=== PATIENT | female | born 1945 | race Caucasian/White ===

== ENCOUNTER 2017-02-21 18:00 | Emergency (ER) | payer OTHER ==
[~2017-02-21] VITALS: Ht 172.7 cm; Wt 100.7 kg
[~2017-02-21 18:00] MED LIST: AMLODIPINE BESYL5 M1 PO; LOSARTAN POTASS1 TA6 PO; METFORMIN ER500 M1 PO; METOPROLOL SUCC50 M2 PO; OMEPRAZOLE DR20 M1 PO
[2017-02-21 21:26] LABS: BASOPHIL % 0.4 % (0-2); PLATELET COUNT 266 x10^3mcL (130-400); RED CELL DISTRIBUTION WIDTH 13.7 % (11.5-14.5)
[2017-02-21 23:44] LABS: CALCIUM 8.5 mg/dL (8.5-10.1); CARBON DIOXIDE 24.5 mmol/L (21-32); POTASSIUM SERUM 3.9 mmol/L (3.5-5.1)
[2017-02-21 23:49] LABS: ALBUMIN 3.4 g/dL (3.4-5.0); BILIRUBIN TOTAL 0.5 mg/dL (0.20-1.00); TOTAL PROTEIN, SERUM 6.7 g/dL (6.4-8.2)
[2017-02-22] LABS: CK-MB 0.7 ng/mL (0-3.6)
[2017-02-22 00:34] VITALS: BP 135/85
== END 2017-02-22 00:34 | disposition home or self-care (01) ==
LOC: ED 18:00
PROVIDERS: Emergency Medicine
DX: M10.9 Gout, unspecified (principal); I10 Essential (primary) hypertension; E11.9 Type 2 diabetes mellitus without complications
CPT/HCPCS: 83880

== ENCOUNTER 2019-12-17 14:25 | Emergency (ER) | payer OTHER ==
[~2019-12-17] VITALS: Ht 167.6 cm; Wt 100.7 kg
[2019-12-17 15:09] VITALS: Ht 167.6 cm; Wt 100.7 kg
[2019-12-17 16:34] VITALS: BP 132/52
== END 2019-12-17 16:34 | disposition home or self-care (01) ==
LOC: ED 14:25
DX: S83.91XA Sprain of unspecified site of right knee, initial encounter (principal); S09.8XXA Other specified injuries of head, initial encounter; W19.XXXA Unspecified fall, initial encounter; I10 Essential (primary) hypertension; E11.9 Type 2 diabetes mellitus without complications; E78.00 Pure hypercholesterolemia, unspecified; Y93.89 Activity, other specified; Y92.89 Other specified places as the place of occurrence of the external cause; Y99.8 Other external cause status